=== PATIENT | female | born 1960 | race Caucasian/White ===

== ENCOUNTER 2018-04-04 13:36 | Outpatient (CLI) | payer OTHER | END 2018-04-04 13:37 | disposition home or self-care (01) | LOC: BICMAMMO 13:36 | PROVIDERS: ATTEND Family Medicine | DX: Z12.31 Encounter for screening mammogram for malignant neoplasm of breast (principal); Z80.3 Family history of malignant neoplasm of breast | CPT/HCPCS: 77063; 77067 ==

== ENCOUNTER 2019-12-27 11:42 | Outpatient (CLI) | payer OTHER ==
--- NOTE | 2019-12-27 14:12 | MMO ---
Bilateral MAMMO Bilat Screen [facility]. CLINICAL HISTORY: Patient is 59 years old and is seen for screening. The patient has the following family history of breast cancer: mother, malignant (generic). The patient has no personal history of cancer. VIEWS: The views performed were: bilateral craniocaudal with tomosynthesis and bilateral mediolateral oblique with tomosynthesis. FILMS COMPARED: The present examination has been compared to prior imaging studies performed at [facility] on 04/01/2011, 04/09/2012, 03/23/2015 and 04/04/2018. This study has been interpreted with the assistance of computer-aided detection. MAMMOGRAM FINDINGS: There are scattered fibroglandular densities. There are stable benign appearing calcifications seen in both breasts. There are no suspicious masses, suspicious calcifications, or new areas of architectural distortion. IMPRESSION: THERE IS NO MAMMOGRAPHIC EVIDENCE OF MALIGNANCY. A ROUTINE FOLLOW-UP MAMMOGRAM IN 1 YEAR IS RECOMMENDED. THE RESULTS OF THIS EXAM WERE SENT TO THE PATIENT. ACR BI-RADS Category 2 - Benign finding MAMMOGRAPHY NOTE: 1. A negative mammogram report should not delay a biopsy if a dominant of clinically suspicious mass is present. 2. Approximately 10% to 15% of breast cancers are not detected by mammography. 3. Adenosis and dense breasts may obscure an underlying neoplasm. Reported by: MANE HANSEN MD Electonically Signed: [id number]
== END 2019-12-27 11:43 | disposition home or self-care (01) ==
LOC: BICMAMMO 11:42
PROVIDERS: ATTEND Family Medicine
DX: Z12.31 Encounter for screening mammogram for malignant neoplasm of breast (principal); Z80.3 Family history of malignant neoplasm of breast
CPT/HCPCS: 77063; 77067

== ENCOUNTER 2020-04-08 10:23 | Outpatient (CLI) | payer OTHER ==
--- NOTE | 2020-04-08 10:54 | BD ---
EXAM: DEXA bone density examination HISTORY: 59-year-old postmenopausal female for screening COMPARISON: None FINDINGS: L1--bone mineral density 0.932 g/sq cm; T score -0.5 L2--bone mineral density 1.212 g/sq cm; T score 1.7 L3--bone mineral density 1.193 g/sq cm; T score 1.0 L4--bone mineral density 1.279 g/sq cm; T score 2.0 Total L1-L4--bone mineral density 1.152 g/sq cm; T score 1.0 Left femoral neck--bone mineral density0.763; T score -0.8 Total proximal left femur--bone mineral density 1.064; T score 1.0 IMPRESSION: Normal bone density.
== END 2020-04-08 10:24 | disposition home or self-care (01) ==
LOC: BICMAMMO 10:23
PROVIDERS: ATTEND Family Medicine
DX: Z13.820 Encounter for screening for osteoporosis (principal); Z78.0 Asymptomatic menopausal state
CPT/HCPCS: 77080

== ENCOUNTER 2020-04-26 06:24 | Observation (INO) | payer OTHER ==
[2020-04-26 07:12] VITALS: BMI 30.4
[2020-04-26] MEDS ORDERED: HYDROcodone/Acetaminophen 5/325 mg Tablet PO PRN (07:31)
[2020-04-26] MEDS ORDERED: Senokot S 8.6-50 MG TAB PO PRN (07:31)
[2020-04-26] MEDS ORDERED: Nitroglycerin 0.4 MG TAB (25 Tab Bottle) SL PRN (07:31)
[2020-04-26] MEDS ORDERED: Acetaminophen 325 MG TAB PO PRN (07:31)
[2020-04-26] MEDS ORDERED: Ondansetron PF 4 MG/2 ML Vial IVP PRN (07:31)
[2020-04-26] MEDS ORDERED: Insulin Regular 300 UNITS/3 ML VIAL SC PRN (07:44)
[2020-04-26] MEDS ORDERED: Dextrose 5% in Water 1,000 ML IV PRN (07:44)
[2020-04-26] MEDS ORDERED: Dextrose 50% Abboject 50 ML SYRINGE SLOW IVP PRN (07:44)
[2020-04-26 08:19] LABS: Hemoglobin A1c 6.1 % (4.0-6.0)
[2020-04-26 08:33] LABS: Cardiac Risk 2.6 (Less than 4.5)
[2020-04-26 08:38] LABS: Troponin I Less than 0.010 ng/mL (< 0.028)
[2020-04-26] MEDS ORDERED: Aspirin Chewable 81 MG TAB PO SCH (09:00)
[2020-04-26] MEDS ORDERED: Lisinopril 2.5 MG TAB PO SCH (10:30)
[2020-04-26] MEDS ORDERED: ADENOSINE 60 MG/20 ML VIAL ONE (10:42)
[2020-04-26 13:41] LABS: SARS-CoV-2 PCR by NAA Not Detected (NotDetected)
[2020-04-26 15:33] VITALS: BP 124/71; TEMP 98.3
[2020-04-26 16:08] LABS: Troponin I Less than 0.010 ng/mL (< 0.028)
[2020-04-26] MEDS ORDERED: Atorvastatin Calcium 20 MG TAB PO SCH (21:00)
[2020-04-27] MEDS ORDERED: Lisinopril 2.5 MG TAB PO SCH (09:00)
== END 2020-04-26 18:15 | disposition home or self-care (01) ==
LOC: 2NO 06:24
PROVIDERS: ADMIT Student in an Organized Health Care Education/Training Program; ATTEND Student in an Organized Health Care Education/Training Program
DX: R07.89 Other chest pain (principal); I10 Essential (primary) hypertension; E11.9 Type 2 diabetes mellitus without complications; E78.5 Hyperlipidemia, unspecified; Z79.84 Long term (current) use of oral hypoglycemic drugs; Z79.899 Other long term (current) drug therapy; Z20.822 Contact with and (suspected) exposure to COVID-19
CPT/HCPCS: 36415; 36416; 78452; 80061; 83036; 87635; 93017; 93306; A9500; G0378; J0153; J1815; U0003; U0005

== ENCOUNTER 2020-04-29 07:49 | Outpatient (CLI) | payer OTHER | END 2020-04-29 07:50 | disposition home or self-care (01) | LOC: BICULT 07:49 | PROVIDERS: ATTEND Internal Medicine | DX: R10.11 Right upper quadrant pain (principal) | CPT/HCPCS: 93975 ==

== ENCOUNTER 2021-02-08 14:59 | Outpatient (CLI) | payer OTHER | END 2021-02-08 15:00 | disposition home or self-care (01) | LOC: BICMAMMO 14:59 | PROVIDERS: ATTEND Student in an Organized Health Care Education/Training Program | DX: Z12.31 Encounter for screening mammogram for malignant neoplasm of breast (principal); Z80.3 Family history of malignant neoplasm of breast | CPT/HCPCS: 77063; 77067 ==

== ENCOUNTER 2021-03-01 12:39 | Outpatient (CLI) | payer OTHER | END 2021-03-01 12:40 | disposition home or self-care (01) | LOC: TBSIIMAG 12:39 | PROVIDERS: ATTEND Orthopaedic Surgery | DX: M23.91 Unspecified internal derangement of right knee (principal); M25.561 Pain in right knee; S83.241A Other tear of medial meniscus, current injury, right knee, initial encounter; S83.281A Other tear of lateral meniscus, current injury, right knee, initial encounter; M25.461 Effusion, right knee ==

== ENCOUNTER 2022-04-22 15:32 | Outpatient (CLI) | payer OTHER | END 2022-04-22 15:33 | disposition home or self-care (01) | LOC: BICMAMMO 15:32 | PROVIDERS: ATTEND Family Medicine | DX: Z12.31 Encounter for screening mammogram for malignant neoplasm of breast (principal); Z80.3 Family history of malignant neoplasm of breast | CPT/HCPCS: 77063; 77067 ==

== ENCOUNTER 2024-10-02 09:25 | Outpatient (CLI) | payer OTHER | END 2024-10-02 09:26 | disposition home or self-care (01) | LOC: BICMAMMO 09:25 | PROVIDERS: ATTEND Family Medicine | DX: Z12.31 Encounter for screening mammogram for malignant neoplasm of breast (principal); Z80.3 Family history of malignant neoplasm of breast | CPT/HCPCS: 77063; 77067 ==